=== PATIENT | female | born 2000 ===

== ENCOUNTER → 2025-04-19 15:00 | Outpatient (BNVA) | payer SELFPAY | PROVIDERS: Visit Provider Obstetrics & Gynecology | DX: Z34.91 Encounter for supervision of normal pregnancy, unspecified, first trimester (principal) | CPT/HCPCS: 81025; 84315 ==

== ENCOUNTER 2025-05-06 16:34 | Outpatient (CLI) | payer SELFPAY ==
--- NOTE | 2025-05-06 16:30 | US_ITS ---
WS: [id number] EARLY OBSTETRICAL ULTRASOUND (<14 WEEKS). HISTORY: N91.2 - Amenorrhea, unspecified COMPARISON: None available. Only transabdominal imaging submitted. Single intrauterine gestational sac is identified. Cardiac activity at 169 BPM. [place]-rump length measures 6.2 cm which corresponds to a gestation of 12w4d. Normal-appearing yolk sac and amnion demonstrated. No subchorionic hemorrhage. No free fluid. Neither ovary identified. US/US OB <= 14 weeks fetus [id number] IMPRESSION: 1. Single intrauterine gestation of 12w4d with an EDC of 11/14/2025. 2. Neither ovary identified. Only transabdominal imaging submitted. 3. Normal cardiac activity.
== END 2025-05-06 16:35 | disposition home or self-care (01) ==
LOC: RAD 16:35
PROVIDERS: PCP Obstetrics & Gynecology; Visit Provider Obstetrics & Gynecology
DX: Z34.91 Encounter for supervision of normal pregnancy, unspecified, first trimester (principal); Z3A.12 12 weeks gestation of pregnancy; N91.2 Amenorrhea, unspecified
CPT/HCPCS: 76801; 80307; 84315; 84443; 85025; 86592; 86762; 86803; 86850; 86900; 87086; 87340; 87491; 87591; 87624; 87661; 87806

== ENCOUNTER → 2025-06-04 13:57 | Outpatient (BNVA) | payer SELFPAY | PROVIDERS: Visit Provider Nurse Practitioner Women's Health | DX: Z34.92 Encounter for supervision of normal pregnancy, unspecified, second trimester (principal); Z3A.16 16 weeks gestation of pregnancy | CPT/HCPCS: 82105; 84315 ==

== ENCOUNTER → 2025-07-10 10:28 | Outpatient (BNVA) | payer SELFPAY | PROVIDERS: Visit Provider Obstetrics & Gynecology | DX: Z34.80 Encounter for supervision of other normal pregnancy, unspecified trimester (principal) | CPT/HCPCS: 84315 ==

== ENCOUNTER → 2025-07-11 12:57 | Outpatient (BNVA) | payer SELFPAY | PROVIDERS: Visit Provider Obstetrics & Gynecology | DX: O99.282 Endocrine, nutritional and metabolic diseases complicating pregnancy, second trimester (principal); E03.9 Hypothyroidism, unspecified | CPT/HCPCS: 84443 ==